=== PATIENT | male | born 1990 | race African-American/Black ===

== ENCOUNTER 2024-09-11 00:39 | Emergency (ER) | payer BC, OTHER | END 2024-09-11 01:33 | disposition home or self-care (01) | LOC: NAV ERS 00:39 | DX: J11.1 Influenza due to unidentified influenza virus with other respiratory manifestations (principal); E11.9 Type 2 diabetes mellitus without complications; E78.5 Hyperlipidemia, unspecified; F17.290 Nicotine dependence, other tobacco product, uncomplicated; Z79.84 Long term (current) use of oral hypoglycemic drugs; Z79.899 Other long term (current) drug therapy | CPT/HCPCS: 99283 ==